=== PATIENT | male | born 1995 | race Caucasian/White ===

== ENCOUNTER 2018-11-22 19:25 | Emergency (ER) | payer OTHER ==
[~2018-11-22] VITALS: Ht 177.8 cm; Wt 72.6 kg
--- OUTSIDE RECORDS SUMMARY | 2018-11-22 19:28 | XMS REPORT | CCD ---
Author Author Auto Generated Organization [facility] Address Unknown Phone Unavailable Care Team Providers Care Counter Dish Carrier Name Role Phone Sabianism, Yomi Jimenez CP Allergies, Adverse Reactions, Alerts Substance Reaction Status NKDA Active Medications Medication Instructions Start Date End Date Status Augmentin 875 mg 1 tab, Route: PO, Drug Form: TAB, 02/20/2012 02/20/2012 Completed oral tablet ONCE, Start date: 02/20/12 22:26:00, Stop date: 02/20/12 22:26:00 Augmentin 500 mg 1 tab, PO, Q12H, 20 tab, 02/20/2012 Ordered oral tablet Substitution Allowed, Maintenance Vital Signs Most recent to oldest [Reference Range]: 1 Height 154.94 cm (02/20/2012 21:02:00) Weight 50.000 kg (02/20/2012 21:02:00)
--- OUTSIDE RECORDS SUMMARY | 2018-11-22 19:28 | XMS REPORT | Continuity of Care Document ---
Author Author [facility] Interface Address Unknown Phone Unavailable Problems Problem Status Onset Date Classification Date Reported Comments Source Cervical lymphadenopathy 11/21/2018 Diagnosis 11/21/2018 [facility] On examination - fever 11/21/2018 Diagnosis 11/21/2018 [facility] Acute tonsillitis 11/21/2018 Diagnosis 11/21/2018 [facility] DOG BITE Active 02/20/2012 [facility] Otitis Media Problem 11/21/2018 [facility] Allergic Rhinitis Problem 11/21/2018 [facility] Medications Medication Details Route Status Patient Instructions Ordering Provider Order Date Source Augmentin 875 mg oral tablet 1 tab, Route: PO, Drug Form: TAB, ONCE, Start date: 02/20/12 22:26:00, Stop date: 02/20/12 22:26:00 PO No Longer Active [facility] 02/21/2012 [facility] Augmentin 500 mg oral tablet 1 tab, PO, Q12H, 20 tab, Substitution Allowed, Maintenance PO Active [facility] 02/21/2012 [facility] Azithromycin 250 MG Oral Tablet azithromycin 250 mg tablet TAKE 2 TABLETS (500 MG) BY ORAL ROUTE ONCE DAILY FOR 1 DAY THEN 1 TABLET (250 MG) BY ORAL ROUTE ONCE DAILY FOR 4 DAYS Active [facility] Brompheniramine Maleate 0.4 MG/ML / Dextromethorphan Hydrobromide 2 MG/ML / Pseudoephedrine Hydrochloride 6 MG/ML Oral Solution yuqpgwscwdqfrzw-dhqjainsedbewah-EA 2 mg-30 mg-10 mg/5 mL oral syrup Active [facility] Lidocaine Hydrochloride 20 MG/ML Mucous Membrane Topical Solution Lidocaine Viscous 2 % mucosal solution Take 15 mL every 3 hours by oral route. Active [facility] methylprednisolone 4 mg tablets in a dose pack methylprednisolone 4 mg tablets in a dose pack Active [facility] Allergies, Adverse Reactions, Alerts Substance Category Reaction Severity Reaction type Status Date Reported Comments Source Immunizations Immunization Date Given Site Status Last Updated Comments Source influenza, injectable, quadrivalent 04/16/2018 completed [facility] Tdap 08/17/2016 completed [facility] Results Order Name Results Value Reference Range Date Interpretation Comments Source RESULT negative 11/21/2018 [facility] SWAB LOCATION Left and Right tonsillar pillars 11/21/2018 [facility] RESULT negative 11/21/2018 [facility] Vital Signs Vital Sign Value Date Comments Source Diastolic (mm Hg) 60 11/21/2018 [facility] Height 70 11/21/2018 [facility] Systolic (mm Hg) 116 11/21/2018 [facility] Weight 160 11/21/2018 [facility] Weight 50.000 02/21/2012 [facility] Height 154.94 cm 02/21/2012 [facility] Encounters Location Location Details Encounter Type Encounter Number Reason For Visit Attending Provider ADM Date DC Date Status Source [facility] Emergency [id number] NADIM ADVENTISM 02/20/2012 02/20/2012 Active [facility] [place] - [facility] - [id number] JOSSELYN OrtizP-C: [address] [place] [address], Ph. [id number] Peng Mariewe 11/21/2018 [facility] [place] [facility] [id number] Peng Peng, GAS PRODUCER-C: [address] [place] [address], Ph. [id number] Peng Mariewe 11/21/2018 [facility] Procedures Procedure Code Date Perfomer Comments Source Tonsillectomy [facility]
--- OUTSIDE RECORDS SUMMARY | 2018-11-22 19:28 | XMS REPORT | Encounter Summary ---
Author Organization Unknown Address [address] [place] [address] Phone [phone] Care Team Providers Care Legal Writing Professor Name Role Phone None 3 Unavailable Reason for Visit Medical Complaint Instructions 1. Acute tonsillitis tonsillitis: care instructions azithromycin 250 mg tablet rapid strep group A, throat culture, respiratory Lidocaine Viscous 2 % mucosal solution 2. On examination - fever mononucleosis, heterophile Ab, blood Discussion Note: None recorded. Plan of Care Patient Instructions Your Care Instructions Tonsillitis is an infection of the tonsils that is caused by bacteria or a virus. The tonsils are in the back of the throat and are part of the immune system. Tonsillitis typically lasts from a few days up to a couple of weeks. Tonsillitis caused by a virus goes away on its own. Tonsillitis caused by the bacteria that causes strep throat is treated with antibiotics. You and your doctor may consider surgery to remove the tonsils (tonsillectomy) if you have serious complications or repeat infections. Follow-up care is a quiles part of your treatment and safety. Be sure to make and go to all appointments, and call your doctor if you are having problems. It's also a good idea to know your test results and keep a list of the medicines you take. How can you care for yourself at home? If your doctor prescribed antibiotics, take them as directed. Do not stop taking them just because you feel better. You need to take the full course of antibiotics. Gargle with warm salt water. This helps reduce swelling and relieve discomfort. Gargle once an hour with 1 teaspoon of salt mixed in 8 fluid ounces of warm water. Take an nlqb-xhj-inxdurf pain medicine, such as acetaminophen (Tylenol), ibuprofen (Advil, Motrin), or naproxen (Aleve). Be safe with medicines. Read and follow all instructions on the label. No one younger than 20 should take aspirin. It has been linked to Jordi syndrome, a serious illness. Be careful when taking yine-uyv-mjgmykt cold or flu medicines and Tylenol at the same time. Many of these medicines have acetaminophen, which is Tylenol. Read the labels to make sure that you are not taking more than the recommended dose. Too much acetaminophen (Tylenol) can be harmful. Try an ewgc-bba-tdtpsbc throat spray to relieve throat pain. Drink plenty of fluids. Fluids may help soothe an irritated throat. Drink warm or cool liquids (whichever feels better). These include tea, soup, and juice. Do not smoke, and avoid secondhand smoke. Smoking can make tonsillitis worse. If you need help quitting, talk to your doctor about stop-smoking programs and medicines. These can increase your chances of quitting for good. Use a vaporizer or humidifier to add moisture to your bedroom. Follow the directions for cleaning the machine. When should you call for help? Call your doctor now or seek immediate medical care if: Your pain gets worse on one side of your throat. You have a new or higher fever. You notice changes in your voice. You have trouble opening your mouth. You have any trouble breathing. You have much more trouble swallowing. You have a fever with a stiff neck or a severe headache. You are sensitive to light or feel very sleepy or confused. Watch closely for changes in your health, and be sure to contact your doctor if: You do not get better after 2 days. Reminders Provider Appointments None recorded. Lab Mononucleosis, Heterophile Ab, Blood 11/21/2018 [facility] Rapid Strep Group a, Throat 11/21/2018 [facility] Culture, Respiratory 11/21/2018 [facility] Referral None recorded. Procedures None recorded. Surgeries None recorded. Imaging None recorded. Medications Name Start Date azithromycin 250 mg tablet TAKE 2 TABLETS (500 MG) BY ORAL ROUTE ONCE DAILY FOR 1 DAY THEN 1 TABLET (250 MG) BY ORAL ROUTE ONCE DAILY FOR 4 DAYS uwvtpoupmdewxlj-bzlngbegqzdzxtn-CZ 2 mg-30 mg-10 mg/5 mL oral syrup Lidocaine Viscous 2 % mucosal solution Take 15 mL every 3 hours by oral route. methylprednisolone 4 mg tablets in a dose pack Medications Administered None recorded. Vitals Height Weight BMI Blood Pressure 5 ft 10 in 160 lbs 23 kg/m2 116/60 mm[Hg] Lab Results Date Name Specimen Result Interpretation Description Value Range Status Address Rapid Strep Group a, Throat Result negative [facility]: [address] [place] [address] Swab Location Left and Right tonsillar pillars [facility]: [address] [place] [address] Mononucleosis, Heterophile Ab, Blood Result negative [facility]: [address] [place] [address] Allergies Code Code System Name Reaction Severity Status Onset NKDA Problems Name Status Onset Date Source Otitis Media Active Encounter Allergic Rhinitis Active Encounter Procedures Date Name Performed by Tonsillectomy Information not available Vaccine List Vaccine Type influenza, injectable, quadrivalent 04/16/2018 Tdap 08/17/2016 Social History Smoking Status Former Smoker Past Encounters 11/21/2018 Acute Tonsillitis; On Examination - Fever Peng Peng, SENIOR IT ENGINEER-C: [address] [place] [address], Ph. History of Present Illness Throat-Oral Complaint Reported By: Patient HPI: Location: throat. Quality: sore throat. Duration: days. Associated Symptoms: no fever, no headache, no body aches, no sputum production, no shortness of breath, no wheezing, no change in number of pillows needed to sleep at night, no sweats, no significant weight gain, no significant weight loss, no morning cough, no diarrhea, no rash, no nausea, sore throat, vomiting Review of Systems:ROS as noted in the HPI Review of Systems Basic Reported By: Patient Physical Exam Adult Basic, 14-21 Yr Male, Adult Male Complete Reported By: Patient Constitutional: General Appearance: healthy-appearing, well-nourished, well-developed. Level of Distress: NAD. Ambulation: ambulating normally Psychiatric: Mental Status: active and alert, normal affect, normal mood. Orientation: to time, to place, to person Evi-Crpe-Idlgy-Throat: Ears: no lesions on external ear, no outer ear tenderness, EACs clear, TMs clear. Hearing: no hearing loss. Nose: no lesions on external nose, nares patent, no septal deviation, nasal passages clear, no sinus tenderness, no nasal discharge. Lips, Teeth, and Gums: no mouth or lip ulcers, no bleeding gums, normal dentition. Oropharynx: moist mucous membranes, no exudates, erythema, tonsils enlarged 2+ Lungs: Respiratory effort: no dyspnea, no tachypnea, no use of accessory muscles, no intercostal retractions. Auscultation: breath sounds normal, clear to auscultation, no wheezing, no rales/crackles, no rhonchi, no retractions, good air movement Cardiovascular: Heart Auscultation: RRR, no murmurs, no gallops, no rub. Rate and rhythm: regular
--- OUTSIDE RECORDS SUMMARY | 2018-11-22 19:28 | XMS REPORT | Encounter Summary ---
Author Organization Unknown Address [address] [place] [address] Phone [phone] Care Team Providers Care Embedded Software Development Engineer Name Role Phone None 3 Unavailable Reason for Visit Medical Complaint Instructions 1. Acute tonsillitis tonsillitis: care instructions azithromycin 250 mg tablet rapid strep group A, throat culture, respiratory Lidocaine Viscous 2 % mucosal solution 2. On examination - fever mononucleosis, heterophile Ab, blood 3. Cervical lymphadenopathy Discussion Note: None recorded. Plan of Care [...] fluid ounces of warm water. Take an nkpw-zne-avdeuja pain medicine, such as acetaminophen (Tylenol), ibuprofen (Advil, Motrin), or naproxen (Aleve). Be safe with medicines. Read and follow all instructions on the label. No one younger than 20 should take aspirin. It has been linked to Jordi syndrome, a serious illness. Be careful when taking xpic-ogp-mlvlygt cold or flu medicines and Tylenol at the same time. Many of these medicines have acetaminophen, which is Tylenol. Read the labels to make sure that you are not taking more than the recommended dose. Too much acetaminophen (Tylenol) can be harmful. Try an whxf-eku-oqplugq throat spray to relieve throat pain. Drink [...] ORAL ROUTE ONCE DAILY FOR 4 DAYS ygdohrugqgpdqvv-wxethzflqbuwcba-TB 2 mg-30 mg-10 mg/5 mL oral syrup [...] Group a, Throat Result negative [facility]: [address] [place] [address] Swab Location Left and Right tonsillar pillars [facility]: [address] [place] [address] Mononucleosis, Heterophile Ab, Blood Result negative [facility]: [address] [place] [address] Allergies Code Code System Name Reaction Severity Status Onset NKDA Problems Name Status Onset Date Source Otitis Media Active Encounter Allergic Rhinitis Active Encounter Procedures Date Name Performed by Tonsillectomy Information not available Vaccine List Vaccine Type influenza, injectable, quadrivalent 04/16/2018 Tdap 08/17/2016 Social History Smoking Status Former Smoker Past Encounters 11/21/2018 Acute Tonsillitis; On Examination - Fever; Cervical Lymphadenopathy [facility] Ortiz-C: [address] [place] [address], Ph. History of Present Illness Throat-Oral Complaint [...] Orientation: to time, to place, to person Vyo-Rukx-Cbecb-Throat: Ears: no lesions on external ear, no outer ear tenderness, EACs clear, TMs clear. Hearing: no hearing loss. Nose: no lesions on external nose, nares patent, no septal deviation, nasal passages clear, no sinus tenderness, no nasal discharge. Lips, Teeth, and Gums: no mouth or lip ulcers, no bleeding gums, normal dentition. Oropharynx: moist mucous membranes, no exudates, erythema, tonsils enlarged 2+ Neck: Lymph Nodes: anterior cervical LAD Lungs: Respiratory effort: no dyspnea, no tachypnea, no use of accessory muscles, no intercostal retractions. Auscultation: breath sounds normal, clear to auscultation, no wheezing, no rales/crackles, no rhonchi, no retractions, good air movement Cardiovascular: Heart Auscultation: RRR, no murmurs, no gallops, no rub. Rate and rhythm: regular
--- OUTSIDE RECORDS SUMMARY | 2018-11-22 19:28 | XMS REPORT ---
Author Author [facility] Address Unknown Phone Unavailable Care Team Providers Care Wood Products Manufacturer Name Role Phone Unavailable Unavailable Payers Payer Name Policy Type Policy Number Effective Date Expiration Date Problems This patient has no known problems. Allergies, Adverse Reactions, Alerts Allergy Name Allergy Type Status Severity Reaction(s) Onset Date Inactive Date Treating Clinician Comments No Known Allergies DA Active U 2016-08-21 00:00:00 Medications This patient has no known medications.
[2018-11-22 19:52] LABS: BASOPHILS % 0.4 % (0.0-1.0); EOSINOPHILS % 0.2 % (0.0-6.0); HEMATOCRIT 45.1 % (38.2-49.6); HEMOGLOBIN 15.6 g/dL (14.0-18.0); LYMPHOCYTES # (AUTO) 1.8 (1.0-3.2); LYMPHOCYTES % 19.6 % (18.0-39.1); MEAN CORPUSCULAR HEMOGLOBIN 31.4 pg (28-32); MEAN CORPUSCULAR HGB CONC 34.6 g/dL (31-35); MEAN CORPUSCULAR VOLUME 90.7 fL (81-99); MONOCYTES # (AUTO) 1.2 (0.2-0.8); NEUTROPHILS # (AUTO) 6.1 (2.1-6.9); NEUTROPHILS % 66.6 % (38.7-80.0); PLATELET COUNT 195 x10e3/uL (140-360); RED BLOOD COUNT 4.97 x10e6/uL (4.3-5.7); RED CELL DISTRIBUTION WIDTH 11.9 % (11.7-14.4)
[2018-11-22 20:38] LABS: ANION GAP 17.7 mmol/L (8-16); BLOOD UREA NITROGEN 9 mg/dL (7-26); BUN/CREATININE RATIO 8 (6-25); CALCIUM 9.6 mg/dL (8.4-10.2); CARBON DIOXIDE 24 mmol/L (22-29); CHLORIDE 99 mmol/L (98-107); CREATININE, SERUM 1.07 mg/dL (0.72-1.25); EST GLOMERULAR FILTRATION RATE > 60 ML/MIN (60-); GLUCOSE 96 mg/dL (74-118); POTASSIUM 3.7 mmol/L (3.5-5.1); SODIUM 137 mmol/L (136-145)
--- NOTE | 2018-11-22 21:49 | Diagnostic Imaging Report ---
History: Neck pain and throat swelling, fever Comparison studies: None Technique: Axial, coronal and sagittal images from the skull base to the thoracic inlet. Coronal and sagittal images reconstructed from the axial data. Dose modulation, iterative reconstruction, and/or weight based adjustment of the mA/kV was utilized to reduce the radiation dose to as low as reasonably achievable. Intravenous contrast: 100 cc of Omnipaque 300. Findings: Soft tissues: The right oropharyngeal tonsil is enlarged and partially obstructs the oropharyngeal airway.. The underlying submucosal tissues are mildly striated (series 3, image 78) is consistent with acute tonsillitis. The inflammatory changes extend into the base of the tongue and into the right epiglottis. Lymph nodes: Multiple homogeneously enhancing, nonnecrotic, noncalcified in the suprahyoid jugular chains (right greater than left) , vary in size between 1 and 2 cm, are reactive Vessels: Arteries and veins are patent. Glands (thyroid, parotid and submandibular): Normal in size and symmetric. No masses. Orbits: No abnormalities. Paranasal sinuses: Mild scattered mucosal thickening. Temporal bones: No abnormalities. Skull base and facial bones: Intact. Cervical spine: No abnormalities IMPRESSION: 1. Acute right tonsillitis. Inflammatory changes extend into the base of the tongue and the right epiglottis. No underlying tonsillar abscess. 2. Bilateral suprahyoid jugular nonnecrotic reactive adenopathy, right greater than left. 3. Otherwise, no significant abnormalities. Signed by: Dr. Shaquille Courtney M.D. on 11/22/2018 9:45 PM
[2018-11-22] MEDS ORDERED: SODIUM CHLORIDE 0.9% 50ML 50 ML ONE (22:26)
[2018-11-22] MEDS ORDERED: IOPAMIDOL 370 MG/ML 200 ML INFUS..BTL INJ ONE (22:26)
[2018-11-22] MEDS ORDERED: CEFTRIAXONE SOD 1 GM VIAL IM ONE (22:30)
[2018-11-22] MEDS ORDERED: ACETAMINOPHEN/CODEINE ELIX 120-12 MG/5 ML UDC PO ONE (23:15)
== END 2018-11-22 23:27 | disposition home or self-care (01) ==
LOC: ER 19:25
DX: J03.90 Acute tonsillitis, unspecified (principal)
CPT/HCPCS: 36415; 70491; 80048; 83518; 85025; 86308; 87070; 99284; J0696; Q9967

== ENCOUNTER 2019-12-27 17:10 | Emergency (ER) | payer OTHER ==
[~2019-12-27] VITALS: Ht 177.8 cm; Wt 72.6 kg
--- NOTE | 2019-12-27 18:04 | Diagnostic Imaging Report ---
Hand Complete CPT code: 97750 Indication:Trauma, swelling Technique: Three views of the right hand obtained Comparison: None. Findings: Distal radius and ulna appear intact. Carpal bones appear generally well aligned. The digits appear intact and normally aligned. A well-corticated cyst in the head of the second metacarpal measures 4 mm. No radiopaque foreign bodies in the soft tissues. IMPRESSION: No evidence for displaced fracture or current dislocation of the hand. Signed by: Dr. Rhiannon Galindo MD on 12/27/2019 6:01 PM
--- NOTE | 2019-12-27 18:05 | Diagnostic Imaging Report ---
Foot complete CPT code: 69942 Indication: Trauma, swelling ^fight, swollen ^[id number] ^[id number] Technique: A.P., oblique and lateral views of the right foot obtained. Comparison: None Findings: Calcaneus is intact and normal in morphology. The midfoot is intact. No evidence of displaced fracture or dislocation involving any of the digits. No radiopaque foreign bodies in the soft tissues. IMPRESSION: No acute traumatic pathology. Signed by: Dr. Rhiannon Galindo MD on 12/27/2019 6:02 PM
== END 2019-12-27 18:43 | disposition home or self-care (01) ==
LOC: ER 17:10
DX: S60.221A Contusion of right hand, initial encounter (principal); S90.32XA Contusion of left foot, initial encounter; Y04.0XXA Assault by unarmed brawl or fight, initial encounter; Y92.488 Other paved roadways as the place of occurrence of the external cause; L01.03 Bullous impetigo; F17.210 Nicotine dependence, cigarettes, uncomplicated
CPT/HCPCS: 99284

== ENCOUNTER 2020-03-12 19:20 | Emergency (ER) | payer OTHER ==
[~2020-03-12] VITALS: Ht 177.8 cm; Wt 69.4 kg
--- OUTSIDE RECORDS SUMMARY | 2020-03-12 19:23 | XMS REPORT ---
Author Author [facility] t Organization [facility] Address [address] [place] [address] Phone Unavailable Care Team Providers Care Consumer Insights Specialist Name Role Phone NO, PCP PCP Unavailable HARSHA VILLAR Attphys Unavailable ARLINE, Isabell BEASLEY Attphys Unavailable Payers Payer Name Policy Type Policy Number Effective Date Expiration Date Chelsea yanez [employer] Pos [id number] 2003 00:00:00 [facility] Problems Condition Name Condition Details Condition Category Status Onset Date Resolution Date Last Treatment Date Treating Clinician Comments Source DOG BITE DOG BITE Active 02/20/2012 [facility] Diagnosis Active 2012-02-20 20:00:00 2012-02-20 21:52:00 [facility] Allergies, Adverse Reactions, Alerts Allergy Name Allergy Type Status Severity Reaction(s) Onset Date Inacti ve Date Treating Clinician Comments Source No Known Allergies DA Active U 2016-08-21 00:00:00 [facility] Medications Ordered Medication Name Filled Medication Name Start Date Stop Da te Current Medication? Ordering Clinician Indication Dosage Frequency Signature (SIG) Comments Components Source Augmentin 875 mg oral tablet 2012-02-21 03:26:00 No Nad im B Orthodox 1 tab, Route: PO, Drug Form: TAB, ONCE, Start date: 02/20/12 22:26:00, Stop date: 02/20/12 22:26:00 [facility] Augmentin 500 mg oral tablet 2012-02-21 03:24:54 Yes Nad im B Orthodox 1 tab, PO, Q12H, 20 tab, Substitution Allowed, Maintenance [facility] Vital Signs Vital Name Observation Time Observation Value Comments Source Weight 2012-02-21 02:02:00 [facility] Height 2012-02-21 02:02:00 154.94 cm [facility] Procedures This patient has no known procedures. Encounters Start Date/Time End Date/Time Encounter Type [facility] Encounter ID Source 2019-12-27 17:10:00 2019-12-27 18:43:00 Departed Emergency Room 1 HARSHA VILLAR [facility] [id number] [facility] 2018-11-22 19:25:00 2018-11-22 23:27:00 Departed Emergency Room 1 RAMOS NUNN [facility] [id number] [facility] 2012-02-20 20:59:00 2012-02-20 23:40:00 Emergency MHIEAL T [facility] [id number] [facility] Results Test Description Test Time Test Comments Results Result Comments Source FOOT RIGHT COMPLETE 2019-12-27 18:01:00 [place] [address] Patient Name: JYOTI DIXON MR #: [id number] : 1995 Age/Sex: 24/M Req #: [id number] Adm Physician: Ordered by: HARSHA VILLAR DO Report #: [id number] Location: ER Room/Bed: Procedure: [id number] DX/FOOT RIGHT COMPLETE Exam Date: 12/27/19 Exam Time: 1737 REPORT STATUS: Signed Foot complete CPT code: 64182 Indication: Trauma, swelling fight, swollen [id number] Technique: A.P., oblique and lateral views of the right foot obtained. Comparison: None Findings: Calcaneus is intact and normal in morphology. The midfoot is intact. No evidence of displaced fracture or dislocation involving any of the digits. No radiopaque foreign bodies in the soft tissues. IMPRESSION: No acute traumatic pathology. Signed by: Dr. Hellen Galindo MD on 12/27/2019 6:02 PM Dictated By: HELLEN GALINDO MD 01 Transcribed By: LIANA on 12/27/191801 COPY TO: HARSHA VILLAR DO HAND 3+ VIEWS RIGHT 2019-12-27 18:00:00 [place] [address] Patient Name: JYOTI DIXON MR #: [id number] : 1995 Age/Sex: 24/M Req #: [id number] Adm Physician: Ordered by: HARSHA VILLAR DO Report #: [id number] Location: Room/Bed: Procedure: [id number] DX/HAND 3+ VIEWS RIGHT Exam Date: 12/27/19 Exam Time: 1738 REPORT STATUS: Signed Hand Complete CPT code: 83553 Indication:Trauma, swelling Technique: Three views of the right hand obtained Comparison: None. Findings: Distal radius and ulna appear intact. Carpal bones appear generally well aligned. The digits appear intact and normally aligned. A well-corticated cyst in the head of the second metacarpal measures 4 mm. No radiopaque foreign bodies in the soft tissues. IMPRESSION: No evidence for displaced fracture or current dislocation of the hand. Signed by: Dr. Hellen Galindo MD on 12/27/2019 6:01 PM Dictated By: HELLEN GALINDO MD 00 Transcribed By: LIANA on 12/27/191800 COPY TO: HARSHA VILLAR DO CT SOFT TISSUE NECK W 2018-11-22 21:38:00 [place] [address] Patient Name: JYOTI DIXON MR #: [id number] : 1995 Age/Sex: 23/M Req #: [id number] Adm Physician: Ordered by: RAMOS NUNN MD Report #: [id number] Location: ER Room/Bed: Procedure: [id number] CT/CT SOFT TISSUE NECK W Exam Date: 11/22/18 Exam Time: 2102 REPORT STATUS: Signed History: Neck pain and throat swelling, fever Comparison studies: None Technique: Axial, coronal and sagittal images from the skull base to the thoracic inlet. Coronal and sagittal images reconstructed from the axial data. Dose modulation, iterative reconstruction, and/or weight based adjustment of the mA/kV was utilized to reduce the radiation dose to as low as reasonably achievable. Intravenous contrast: 100 cc of Omnipaque 300. Findings: Soft tissues: The right oropharyngeal tonsil is enlarged and partially obstructs the oropharyngeal airway.. The underlying submucosal tissues are mildly striated (series 3, image 78) is consistent with acute tonsillitis. The inflammatory changes extend into the base of the tongue and into the right epiglottis. Lymph nodes: Multiple homogeneously enhancing, nonnecrotic, noncalcified in the suprahyoid jugular chains (right greater than left) , vary in size between 1 and 2 cm, are reactive Vessels: Arteries and veins are patent. Glands (thyroid, parotid and submandibular): Normal in size and symmetric. No masses. Orbits: No abnormalities. Paranasal sinuses: Mild scattered mucosal thickening. Temporal bones: No abnormalities. Skull base and facial bones: Intact. Cervical spine: No abnormalities IMPRESSION: 1. Acute right tonsillitis. Inflammatory changes extend into the base of the tongue and the right epiglottis. No underlying tonsillar abscess. 2. Bilateral suprahyoid jugular nonnecrotic reactive adenopathy, right greater than left. 3. Otherwise, no significant abnormalities. Signed by: Dr. Shaquille Courtney M.D. on 11/22/2018 9:45 PM Dictated By: SHAQUILLE COURTNEY MD, MD 44 Transcribed By: LIANA on 11/22/182144 COPY TO: RAMOS NUNN MD Sodium Level 2018-11-22 20:38:00 Test Item Sodium Level (test code = 2951-2) 137 136-145 [facility] Glhpd5457-27-83 20:38:00* Test Item Value Reference Range Interpretation Comments Potassium Level (test code = 2823-3) 3.7 3.5-5.1 [facility] CenterChloride Hzacn5018-22-64 20:38:00* Test Item Value Reference Range Interpretation Comments Chloride Level (test code = 2075-0) 99 98-107 [facility] CenterCarbon Dioxide Bcoph8325-81-34 20:38:00* Test Item Value Reference Range Interpretation Comments Carbon Dioxide Level (test code = 2028-9) 24 22-29 [facility] CenterAnion Eaq7356-18-53 20:38:00* Test Item Value Reference Range Interpretation Comments Anion Gap (test code = 33128-0) 17.7 8-16 H [facility] CenterBlood Urea Ybkqphre8050-00-17 20:38:00* Test Item Value Reference Range Interpretation Comments Blood Urea Nitrogen (test code = 3094-0) 9 7-26 [facility] CenterCreatinine2019-02-06 20:38:00* Test Item Value Reference Range Interpretation Comments Creatinine (test code = 2160-0) 1.07 0.72-1.25 [facility] CenterBUN/Creatinine Zoadh7807-15-15 20:38:00* Test Item Value Reference Range Interpretation Comments BUN/Creatinine Ratio (test code = 3097-3) 8 6-25 [facility] CenterEstimat Glomerular Filtration Rate 2018-11-22 20:38:00* Test Item Value Reference Range Interpretation Comments Estimat Glomerular Filtration Rate (test code = 473753696) > 60 >60 Ranges were taken from the National Kidney Disease Education Program and the [facility] Kidney Foundation literature.Reference ranges:60 or greater: Pwipcp66-61 ( for 3 consecutive months): Chronic kidney disease 15 or less: Kidney failureParis Regional Medical CenterGlucose Ijqqn6631-61-76 20:38:00* Test Item Value Reference Range Interpretation Comments Glucose Level (test code = OAX8820) 96 74-118 [facility] CenterCalcium Dyjud5062-38-55 20:38:00* Test Item Value Reference Range Interpretation Comments Calcium Level (test code = 55065-4) 9.6 8.4-10.2 [facility] CenterMonoscreen2019-02-06 20:09:00* Test Item Value Reference Range Interpretation Comments Monoscreen (test code = 5215-9) NEGATIVE NEGATIVE [facility] CenterGroup A Streptococcus Qzttjq9894-56-91 20:02:00* Test Item Value Reference Range Interpretation Comments Group A Streptococcus Screen (test code = 91371-5) NEGATIVE NEG ATIVE [facility] CenterWhite Blood Uzjke9112-09-24 19:53:00* Test Item Value Reference Range Interpretation Comments White Blood Count (test code = 6690-2) 9.20 4.8-10.8 [facility] CenterRed Blood Uzrci0711-66-84 19:53:00* Test Item Value Reference Range Interpretation Comments Red Blood Count (test code = 789-8) 4.97 4.3-5.7 [facility] CenterHemoglobin2019-02-06 19:53:00* Test Item Value Reference Range Interpretation Comments Hemoglobin (test code = 34977-7) 15.6 14.0-18.0 [facility] CenterHematocrit2019-02-06 19:53:00* Test Item Value Reference Range Interpretation Comments Hematocrit (test code = 4544-3) 45.1 38.2-49.6 [facility] CenterMean Corpuscular Sfbvzf1852-82-20 19:53:00* Test Item Value Reference Range Interpretation Comments Mean Corpuscular Volume (test code = 787-2) 90.7 81-99 [facility] CenterMean Corpuscular Qdhjdfhirj6049-71-27 19:53:00* Test Item Value Reference Range Interpretation Comments Mean Corpuscular Hemoglobin (test code = 785-6) 31.4 28-32 [facility] CenterMean Corpuscular Hemoglobin Concent 2018-11-22 19:53:00* Test Item Value Reference Range Interpretation Comments Mean Corpuscular Hemoglobin Concent (test code = 786-4) 34.6 31-35 [facility] CenterRed Cell Distribution Syoat3292-46-05 19:53:00* Test Item Value Reference Range Interpretation Comments Red Cell Distribution Width (test code = 24871-2) 11.9 11.7 -14.4 [facility] CenterPlatelet Loiuo2378-14-08 19:53:00* Test Item Value Reference Range Interpretation Comments Platelet Count (test code = 777-3) 195 140-360 [facility] CenterNeutrophils (%) (Auto)2018-11-22 19:53:00 * Test Item Value Reference Range Interpretation Comments Neutrophils (%) (Auto) (test code = 06921-3) 66.6 38.7-80.0 [facility] CenterLymphocytes (%) (Auto)2018-11-22 19:53:00 * Test Item Value Reference Range Interpretation Comments Lymphocytes (%) (Auto) (test code = 736-9) 19.6 18.0-39.1 [facility] CenterMonocytes (%) (Auto)2018-11-22 19:53:00* Test Item Value Reference Range Interpretation Comments Monocytes (%) (Auto) (test code = 5905-5) 13.0 4.4-11.3 H [facility] CenterEosinophils (%) (Auto)2018-11-22 19:53:00 * Test Item Value Reference Range Interpretation Comments Eosinophils (%) (Auto) (test code = 713-8) 0.2 0.0-6.0 [facility] CenterBasophils (%) (Auto)2018-11-22 19:53:00* Test Item Value Reference Range Interpretation Comments Basophils (%) (Auto) (test code = 706-2) 0.4 0.0-1.0 [facility] CenterIM GRANULOCYTES %2018-11-22 19:53:00* Test Item Value Reference Range Interpretation Comments IM GRANULOCYTES % (test code = IM GRANULOCYTES %) 0.2 0.0- 1.0 [facility] CenterNeutrophils # (Auto)2018-11-22 19:53:00* Test Item Value Reference Range Interpretation Comments Neutrophils # (Auto) (test code = 751-8) 6.1 2.1-6.9 [facility] CenterLymphocytes # (Auto)2018-11-22 19:53:00* Test Item Value Reference Range Interpretation Comments Lymphocytes # (Auto) (test code = 18281-0) 1.8 1.0-3.2 [facility] CenterMonocytes # (Auto)2018-11-22 19:53:00* Test Item Value Reference Range Interpretation Comments Monocytes # (Auto) (test code = 742-7) 1.2 0.2-0.8 H [facility] CenterEosinophils # (Auto)2018-11-22 19:53:00* Test Item Value Reference Range Interpretation Comments Eosinophils # (Auto) (test code = 711-2) 0.0 0.0-0.4 [facility] CenterBasophils # (Auto)2018-11-22 19:53:00* Test Item Value Reference Range Interpretation Comments Basophils # (Auto) (test code = 704-7) 0.0 0.0-0.1 [facility] CenterAbsolute Immature Granulocyte (auto 2018-11-22 19:53:00* Test Item Value Reference Range Interpretation Comments Absolute Immature Granulocyte (auto (bailey t code = Absolute Immature Granulocyte (auto) 0.02 0-0.1 [facility]
--- OUTSIDE RECORDS SUMMARY | 2020-03-12 19:23 | XMS REPORT | Continuity of Care Document ---
Author Author [place] [place] [facility] JYOTI Mi [employer] Information Marco Vasco Address Unknown Phone Unavailable Care Team Providers Care Construction Coordinator Name Role Phone [employer] Unavailable Un available Problems Problem Status Onset Date Classification Date Reported Comments Source DOG BITE Active 02/20/2012 [facility] Medications Medication Details Route Status Patient Instructions Ordering Provider Order Date Source Augmentin 875 mg oral tablet 1 tab, Route: PO, Drug Form: TAB, ONCE, Start date: 02/20/12 22:26:00, Stop date: 02/20/12 22:26:00 PO No Longer Active [employer] 02/20 [facility] Augmentin 500 mg oral tablet 1 tab, PO, Q12H, 20 tab, Substitution Allowed, Maintenance PO Active Armida m 02/21/2012 [facility] Allergies, Adverse Reactions, Alerts No Known Medication Allergies Immunizations No Data Provided for This Section Results No Data Provided for This Section Pathology Reports No Data Provided for This Section Diagnostic Reports No Data Provided for This Section Consultation Notes No Data Provided for This Section Discharge Summaries No Data Provided for This Section History and Physicals No Data Provided for This Section Vital Signs Vital Sign Value Date Comments Source Weight 50.000 02/21/2012 [facility] Height 154.94 cm 02/21/2012 [facility] Encounters Location Location Details Encounter Type Encounter Number Reason For Visit Attending Provider ADM Date DC Date Status Source [facility] Emergency [id number] NADIM VOODOO 02/20/2012 02/20/2012 Discharged [facility] Procedures No Data Provided for This Section Assessment and Plan No Data Provided for This Section Plan of Care No Data Provided for This Section Social History No Data Provided for This Section Family History No Data Provided for This Section Advance Directives No Data Provided for This Section Functional Status No Data Provided for This Section
[2020-03-12] MEDS ORDERED: TETRACAINE HCL 0.5% OPTH SOLN 4 ML BTL OP ONE (19:30)
[2020-03-12] MEDS ORDERED: FLUORESCEIN SOD(OPTH) 1 MG STRP OP ONE (19:30)
--- NOTE | 2020-03-12 20:01 | Emergency Department Note ---
History of Present Illnes History of Present Illness Chief Complaint: Eye, Ear, Nose, Throat, Dental History of Present Illness This is a 25 year old male . Historian: Patient Arrival Mode: Car General Doc Required: No Onset (how long ago): day(s) (2) Location: left eye Quality: feels like a FB Onset quality: gradual Duration (how long): day(s) (2) Progression: unchanged Chronicity: new Relieving factors: none Exacerbating factors: none Associated symptoms: denies other symptoms Treatments prior to arrival: none (SUNI OCONNOR NP) Past Medical/Family History Physician Review I have reviewed the patient's past medical and family history. Any updates have been documented here. (SUNI OCONNOR NP) Past Medical History Past Medical History: None Past Surgical History: T&A (SUNI OCONNOR NP) Social History Any Illegal Drug Use: No TB Exposure/Symptoms: No (SUNI OCONNOR NP) Family History Family history of heart diseas: No (SUNI OCONNOR NP) Other Last Tetanus: UTD Any Pre-Existing Lines (PICC,: No Is patient up to date on immun: No (SUNI OCONNOR NP) Review of Systems Review of Systems Constitutional: no symptoms EENTM: eye pain, tearing Cardiovascular: no symptoms Respiratory: no symptoms Gastrointestinal: no symptoms Genitourinary: no symptoms Musculoskeletal: no symptoms Neurological: no symptoms Psychological: no symptoms Endocrine: no symptoms Hematological/Lymphatic: no symptoms Review of other systems All other systems reviewed and negative. (SUNI OCONNOR NP) Physical Exam Related Data Allergies: Coded Allergies: No Known Allergies (Unverified , 11/22/18) Vital signs reviewed: Yes (SUNI OCONNOR NP) Physical Exam CONSTITUTIONAL Constitutional: well-developed, well-nourished HENT HENT: normocephalic, atraumatic, oropharynx clear/moist, nose normal HENT L/R: left ext ear normal, right ext ear normal EYES Eyes: PERRL, right eye discharge (red and tearing, injected conjunctiae) NECK Neck: ROM normal PULMONARY Pulmonary: effort normal, breath sounds normal CARDIOVASCULAR Cardiovascular: regular rhythm, heart sounds normal, capillary refill normal, normal rate GASTROINTESTINAL Abdominal: soft, nontender, bowel sounds normal GENITOURINARY Genitourinary: exam deferred SKIN Skin: warm, dry MUSCULOSKELETAL Musculoskeletal: ROM normal NEUROLOGICAL Neurological: alert, oriented x 3, no gross motor or sensory deficits PSYCHOLOGICAL Psychological: mood/affect normal, judgement normal (SUNI OCONNOR NP) Procedures Procedures Procedure: Tetracaine 2gtts to right eye Fluriscien Using Cordero lamp, small amount uptake at 5'o clock irrigated Patient danny well (SUNI OCONNOR NP) Critical Care Time Subsequent provider I assumed direction of critical care for this patient from another provider of my specialty. (SUNI OCONNOR NP) Assessment & Plan Assessment & Plan Final Impression: (1) Conjunctival injection (2) Conjunctival irritation Assessment & Plan Eye exam and visual acuity (SUNI OCONNOR NP) Depart Disposition: HOME, SELF-CARE Physician Attestation Provider Attestation The patient's history, exam findings, diagnostics, and a summary of any interventions or procedures was reviewed in detail with our ROB. I personally interviewed and examined the patient, and I have reviewed and agree with the HPI andexam. My personal exam shows [ right with conjunctival injection and tearing]. I confirm the diagnosis as documented by the ROB. I have reviewed and agree with the care plan articulated in the disposition section. (WISAM JUNG MD) SUNI OCONNOR NP March 12, 2020 19:34 WISAM JUNG MD March 12, 2020 20:20
== END 2020-03-12 20:26 | disposition home or self-care (01) ==
LOC: ER 19:20
DX: H57.11 Ocular pain, right eye (principal); H11.9 Unspecified disorder of conjunctiva
CPT/HCPCS: 99283